=== PATIENT | female | born 1955 | race Caucasian/White ===

== ENCOUNTER → 2017-12-07 | Outpatient (CLI) | payer OTHER ==
[~2017-12-07] MED LIST: MIDAZOLAM 2 MG/2 ML VIAL ONE
== END ==
LOC: FIMAGING 09:49
PROVIDERS: ATTEND Physician Assistant
DX: K80.20 Calculus of gallbladder without cholecystitis without obstruction (principal)
CPT/HCPCS: J2250

== ENCOUNTER → 2017-12-20 | Outpatient (CLI) | payer OTHER | LOC: FIMAGING 14:35 | PROVIDERS: ATTEND Surgery | DX: K83.9 Disease of biliary tract, unspecified (principal); Z90.49 Acquired absence of other specified parts of digestive tract ==